=== PATIENT | female | born 1970 | race Caucasian/White ===

== ENCOUNTER 2017-02-26 14:22 | Inpatient (IN) | payer OTHER ==
[~2017-02-26] VITALS: Ht 157.5 cm; Wt 112.9 kg
[~2017-02-26 14:22] MED LIST: AMOXICILLIN500 M2 PO; BENTYL20 MG PO; CLEOCIN HCL300 MG PO; DIFLUCAN150 M1 PO; MEDROL4 M2 PO; PERCOCET 325 MG1 TA2 PO; PERCOCET 5-3251 EACH PO; PERMETHRIN5% TOP; PYRIDIUM100 M1 PO; VALIUM5 M1 PO; ZITHROMAX250 M2 PO; ZOFRAN4 M1 SL
--- NOTE | 2017-02-26 14:28 | NUR ---
PT SEEN BY PCP FOR ABD PAIN ON SUNDAY. PT STATES SHE WAS CALLED TODAY BY DR. ORTIZ AND TOLD TO COME TO ED FOR EVAL OF HER ELEVATED WHITE COUNT. PT CONT. WITH LOWER ABD PAIN AND STATES IT HURST WHEN SHE URINATES. PT STATES SHE IS HAVING TROUBLE MOVING HER BOWELS AND TOOK STOOL SOFTENERS YESTERAY AND MIRALAX THIS AM/.
--- NOTE | 2017-02-26 14:45 | NUR ---
APPRECIATE TRIAGE NOTE. PT AMBULATORY TO ROOM 20. PA CLAIRE TO BEDSIDE FOR EVAL.
--- NOTE | 2017-02-26 14:49 | ED GI/GU/ABDOMINAL COMPLAINT ---
History of Present Illness General Chief Complaint: Abdominal Pain/Flank Pain Stated Complaint: SENT BY DR NORMAN FOR EVAL OF HIGH WHITE COUNT Source: patient Exam Limitations: no limitations Vital Signs & Intake/Output Vital Signs & Intake/Output Vital Signs Date Time Temp Pulse Resp B/P B/P Pulse O2 O2 Flow FiO2 Mean Ox Delivery Rate 02/266 98.0 96 20 112/70 96 Room Air 02/26 2045 97.5 95 18 112/67 97 Room Air Room Air 02/26 1929 97.5 94 20 106/52 96 Room Air 02/26 1430 96.0 108 18 117/84 96 Room Air ED Intake and Output 02/27 0000 02/26 1200 Intake Total 1000 Output Total Balance 1000 Intake, IV 1000 Patient 250 lb Weight Weight Reported by Patient Measurement Method Allergies Coded Allergies: nitrofurantoin (From MACROBID) (HIVES/SOB 02/26/17) aspirin (Intermediate, VOMITING 02/26/17) Reconcile Medications Albuterol Sulfate (Proair Hfa) 90 MCG HFA.AER.AD 2 PUF INH Q4-6 PRN PRN RESPIRATORY (Reported) Calcium Carbonate/Vitamin D3 (Calcium 500 + D Tablet) (Unknown Strength) TABLET (Unknown Dose) PO DAILY SUPPLEMENT (Reported) Ciprofloxacin HCl 500 MG TABLET 1 TAB PO BID ANTIBIOTIC (Reported) Cyanocobalamin (Vitamin B-12) (Nascobal) 500 MCG/SPRAY SPRAY 1 SPRAY DANIELLE QMON SUPPLEMENT (Reported) Duloxetine HCl 30 MG CAPSULE. 3 CAP PO DAILY MENTAL HEALTH (Reported) Multivitamin (Daily Value) 1 EACH TABLET 1 TAB PO DAILY SUPPLEMENT (Reported) Ondansetron HCl 8 MG TABLET 1 TAB PO TID PRN N/V (Reported) Pantoprazole Sodium 40 MG TABLET.DR 1 TAB PO DAILY GI (Reported) Triage Note: PT SEEN BY PCP FOR ABD PAIN ON SUNDAY. PT STATES SHE WAS CALLED TODAY BY DR. ORTIZ AND TOLD TO COME TO ED FOR EVAL OF HER ELEVATED WHITE COUNT. PT CONT. WITH LOWER ABD PAIN AND STATES IT HURST WHEN SHE URINATES. Triage Nurses Notes Reviewed? yes ? N Is pt currently ? No Onset: Abrupt Duration: week(s):, constant Timing: recent history Quality/Severity: moderate, sharpness, severe Radiation: no radiation Activities at Onset: none No Modifying Factors: none HPI: 46-year-old female comes into emergency room for further evaluation of lower abdominal pain. Patient reports that the symptoms began last week. She began to vomit last Sunday and went to see her primary care doctor. She thought that she might of had a urinary tract infection. She saw her doctor who started her on ciprofloxacin and had blood work done. Her doctor called back and said that the urine culture was negative but her inflammatory marker was high concerned about possibly diverticulitis. Previous gastric bypass surgery. Denies any other associated symptoms. (JUDY SWENSON) Past History Travel History Traveled to [place] past 21 day No Medical History Any Pertinent Medical History? 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 No (JUDY SWENSON) Review of Systems Review of Systems Constitutional: Reports: no symptoms. EENTM: Reports: no symptoms. Respiratory: Reports: no symptoms. Cardiovascular: Reports: no symptoms. GI: Reports: see HPI. Genitourinary: Reports: no symptoms. Musculoskeletal: Reports: no symptoms. Skin: Reports: no symptoms. Neurological/Psychological: Reports: no symptoms. Hematologic/Endocrine: Reports: no symptoms. Immunologic/Allergic: Reports: no symptoms. All Other Systems: Reviewed and Negative (JUDY SWENSON) Physical Exam Physical Exam General Appearance: well developed/nourished, no apparent distress, alert Head: atraumatic, normal appearance Eyes: Bilateral: normal appearance. Ears, Nose, Throat, Mouth: hearing grossly normal, moist mucous membrane Neck: normal inspection Respiratory: normal breath sounds, no respiratory distress Cardiovascular: regular rate/rhythm Gastrointestinal: soft, tenderness Back: normal range of motion Extremities: normal range of motion Neurologic/Psych: awake, alert, oriented x 3, normal gait Skin: intact, normal color Core Measures ACS in differential dx? No Severe Sepsis Present: No Septic Shock Present: No (JUDY SWENSON) Progress Differential Diagnosis: appendicitis, biliary colic, bowel obstruction, colon cancer, cholecystitis, diverticulitis, ectopic , gastritis, inflamm bowel dis, kidney stone, ovarian cyst, ovarian torsion, perforated viscous, UTI/ pyelo Plan of Care: Orders Procedure Date/time Status Nothing by Mouth 02/27 B Active CBC WITHOUT DIFFERENTIAL 02/27 06 Active BASIC ELECTROLYTES PLUS BUN&CR 02/27 06 Active Vital Signs 02/26 221 Complete Teach/Educate 02/26 2219 Active Pain Treatment and Response 02/26 2219 Active Nutritional Intake, Monitor 02/26 2219 Active Isolation 02/26 2219 Active Intake & Output 02/26 2219 Complete Patient Care Conference 02/26 2219 Active Activity/Ambulation 02/26 2219 Active Admit to inpatient 02/26 193 Active Patient Data 02/26 1918 Active Vital Signs 02/26 1918 Active Intake & Output 02/26 1918 Active Code Status 02/26 1918 Active Add-on Test (ER Only) 02/26 1753 Active CULTURE,URINE 02/26 1540 Active BLOOD CULTURE 02/26 1448 Active LACTIC ACID 02/26 1448 Complete HUMAN BETA HCG SCREEN 02/26 1448 Complete COMPREHENSIVE METABOLIC PANEL 02/26 1448 Complete CBC WITHOUT DIFFERENTIAL 02/26 1448 Complete URINALYSIS 02/26 1431 Complete Current Medications Sig/Akanksha Start time Last Medication Dose Stop Time Status Admin Duloxetine HCl 90 MG DAILY 02/27 1000 AC (Cymbalta) Nicotine 21 MG DAILY 02/27 1000 AC (Nicoderm) Ampicillin Sodium/ 3,000 MG Q6 02/26 2359 AC 02/26 Sulbactam Sodium 2327 (Unasyn) Sodium Chloride 100 ML (Normal Saline 0.9%) Heparin Sodium 5,000 UNIT Q8 02/26 2200 AC 02/26 (Porcine) 2327 Pantoprazole Sodium 40 MG DAILY 02/26 193 AC 02/26 (Protonix) 2023 Albuterol Sulfate 2 PUF Q4-6 PRN PRN 02/26 1915 AC (Ventolin) Dextrose/Sodium 1,000 ML Q8H 02/26 1915 AC 02/26 Chloride 2024 (D5W-1/2 Normal Saline 1000ML) Doxycycline Hyclate 200 MG ONCE ONE 02/26 1915 CAN (Vibramycin) 02/27 1916 Morphine Sulfate 4 MG Q4P PRN 02/26 1915 AC 02/26 (Morphine) 2334 Ondansetron HCl 4 MG Q6P PRN 02/26 1915 (Zofran) Laboratory Tests 02/26/17 1748: Lactic Acid Cancelled 02/26/17 1545: Anion Gap 11, Estimated GFR > 60, BUN/Creatinine Ratio 15.0, Glucose 92, Lactic Acid 1.4, Calcium 9.1, Total Bilirubin 0.3, AST 21, ALT 26, Alkaline Phosphatase 121, Total Protein 6.6, Albumin 3.7, Globulin 2.9, Albumin/Globulin Ratio 1.3, Total Beta HCG NEGATIVE, CBC w Diff NO MAN DIFF REQ, RBC 3.86 L, MCV 98.1, MCH 31.9 H, RDW 15.6 H, MPV 6.9 L, Gran % 72.9, Lymphocytes % 22.4, Monocytes % 2.5, Eosinophils % 1.1, Basophils % 1.1, Absolute Granulocytes 12.4 H, Absolute Lymphocytes 3.8 H, Absolute Monocytes 0.4, Absolute Eosinophils 0.2, Absolute Basophils 0.2, PUBS MCHC 32.5 L, Urine Color YEL, Urine Clarity CLEAR, Urine pH 6.0, Ur Specific [place] >= 1.030, Urine Protein TRACE H, Urine Ketones NEG, Urine Nitrite NEG, Urine Bilirubin NEG, Urine Urobilinogen 2.0 H, Ur Leukocyte Esterase NEG, Ur Microscopic SEDIMENT EXAMINED, Urine WBC 25-50 H, Ur Epithelial Cells FEW, Urine Bacteria MOD H, Urine Mucus MANY H, Urine Hemoglobin NEG, Urine Glucose NEG Microbiology 02/26 1553 BLOOD: Blood Culture - RECD 02/26 1545 BLOOD: Blood Culture - RECD 02/26 1540 URINE ROUT: Urine Culture - RECD Diagnostic Imaging: Viewed by Me: CT Scan. Discussed w/RAD: CT Scan. Radiology Impression: SERVICE DATE: 02/26/17 EXAM TYPE: CAT - CT ABD & PELVIS W ORAL & IV CO EXAMINATION: CT ABDOMEN AND PELVIS WITH CONTRAST CLINICAL INFORMATION: Left lower quadrant pain, gastric bypass 2010. COMPARISON: 2014 TECHNIQUE: Multidetector volumetric imaging was performed of the abdomen and pelvis before and after the IV administration of 95 mL of Optiray 320 intravenous contrast. Sagittal and coronal reformatted images were obtained on the technologist's workstation. DLP: 1489 mGy-cm FINDINGS: LUNG BASES: Clear, there is an old healed posterior 8th rib fracture partially visualized. LIVER AND SPLEEN: Unremarkable. PANCREAS GALLBLADDER AND BILIARY TREE: Unremarkable. KIDNEYS, URETERS, AND ADRENALS: Unremarkable. URINARY BLADDER: Partially distended and unremarkable. GI TRACT: There are postsurgical changes consistent with a Sharon-en-Y gastric bypass procedure without evidence of an associated complication. PERITONEAL CAVITY: There is intraperitoneal free fluid with nonspecific mesenteric soft tissue stranding in the pelvis with the largest fluid collection in the right lower quadrant/pelvis just posterior to what appears to represent a normal-appearing appendix. Small bowel loops are nondilated. There is mild circumferential mural thickening questioned, however this is thought to represent underdistention although an evolving colitis is not entirely excluded. RETROPERITONEUM: There are a few scattered retroperitoneal lymph nodes measuring under 1 cm. PELVIC ORGANS: An intrauterine device appears in satisfactory position. There are small probable cysts in the bilateral adnexa measuring under 2 cm maximal dimension. OSSEOUS STRUCTURES: No aggressive osseous lesions. There are degenerative changes which are mild. ANTERIOR ABDOMINAL WALL AND SOFT TISSUES: There is a small anterior abdominal wall hernia containing only mesenteric fat just to the left of midline superior to the umbilicus by approximately 5 cm. IMPRESSION: 1. Post gastric bypass changes appear largely unchanged without evidence of complication. 2. There is intraperitoneal free fluid in the pelvis and right paracolic gutter with associated soft tissue stranding suggesting inflammation indeterminate in etiology. 3. Questionable mild mural thickening with surrounding inflammatory changes involving the sigmoid colon versus underdistention. Question primary versus secondarily involved bowel loop. 3. Small anterior abdominal wall hernia contains only mesenteric fat. DICTATED BY: TARAN ROMAN MD DATE/TIME DICTATED:02/26/171707 LEARNING TECHNOLOGIST:PATRICK Initial ED EKG: none (JUDY SWENSON) Departure Departure Disposition: STILL A PATIENT Condition: Stable Clinical Impression Primary Impression: Abdominal pain Secondary Impressions: Free fluid in pelvis, Leukocytosis Referrals: ESTER DODGE,GOMEZ Milton (PCP/Family) Departure Forms: Customer Survey General Discharge Information Admission Note Spoke With: JHONY DODGE,QUEENIE N. Documentation of Exam: Documentation of any treatments & extenuating circumstances including Concerns Regarding Discharge (functional status, medication knowledge or non-compliance, living conditions, etc.) that warrant an admission rather than observation: Patient will require IV fluids. IV antibiotics. Surgery consultation. Repeat imaging. Repeat labs. Patient has free fluid in the pelvis with inflammation with unknown etiology at this time. She was evaluated by the general surgeon who feels that she needs admission to the hospital for further care. NPO. (CLAIRE NASCIMENTO,JUDY) PA/SALES REPRESENTATIVE FACILITY SERVICES Co-Sign Statement Statement: ED Attending supervision documentation- [] I saw and evaluated the patient. I have also reviewed all the pertinent lab results and diagnostic results. I agree with the findings and the plan of care as documented in the PA's/SALES REPRESENTATIVE FACILITY SERVICES's documentation. [X] I have reviewed the ED Record and agree with the PA's/SALES REPRESENTATIVE FACILITY SERVICES's documentation. [] Additions or exceptions (if any) to the PAs/SALES REPRESENTATIVE FACILITY SERVICES's note and plan are summarized below: [] (NATHALIE DODGE,WENDI)
--- NOTE | 2017-02-26 15:52 | NUR ---
PT MEDICATED WITH MORPHINE 4MG PER EMAR.
--- NOTE | 2017-02-26 15:54 | NUR ---
LABS DRAWN AND SENT BY THIS RN (BLUE, SST X2, LAV, LAKE, CULTURES X1 SET). IV EST #20 AND NS IVF BOLUS RUNNING. MEDICATED WITH MORPHINE PER eMAR BY SOHAM WALLIS
[2017-02-26 16:01] LABS: ABSOLUTE BASOPHIL COUNT 0.2 /CUMM (0.0-0.2); ABSOLUTE EOSINOPHIL COUNT 0.2 /CUMM (0.0-0.7); ABSOLUTE GRANULOCYTE CT 12.4 /CUMM (1.4-6.5); ABSOLUTE LYMPH COUNT 3.8 /CUMM (1.2-3.4); ABSOLUTE MONOCYTE COUNT 0.4 /CUMM (0.10-0.60); BASOPHIL % 1.1 % (0.0-2.0); EOSINOPHIL % 1.1 % (0-5); HEMATOCRIT 37.8 % (37-47); MEAN CORPUSCULAR HGB 31.9 PG (27.0-31.0); MEAN CORPUSCULAR HGB CONC 32.5 G/DL (33.0-37.0); MEAN CORPUSCULAR VOLUME 98.1 FL (81.0-99.0); MEAN PLATELET VOLUME 6.9 FL (7.4-10.4); PLATELET COUNT 540 /CUMM (130-400); RBC DISTRIBUTION WIDTH 15.6 % (11.5-14.5); RED BLOOD CELL CT 3.86 /CUMM (4.20-5.40)
[2017-02-26 16:23] LABS: GRANULOCYTE % 72.9 % (42.2-75.2)
[2017-02-26] MEDS ORDERED: NASCOBAL1 EACH NAS (16:34)
[2017-02-26] MEDS ORDERED: PANTOPRAZOLE SO40 M1 PO (16:34)
[2017-02-26] MEDS ORDERED: DULOXETINE HCL30 MG PO (16:34)
[2017-02-26] MEDS ORDERED: CIPROFLOXACIN500 M2 PO (16:34)
[2017-02-26] MEDS ORDERED: ONDANSETRON HCL8 MG PO (16:35)
[2017-02-26] MEDS ORDERED: PROAIR HFA8.5 GM INH (16:35)
[2017-02-26] MEDS ORDERED: CALCIUM 500 +1 EAC5 PO (16:36)
[2017-02-26] MEDS ORDERED: DAILY VALUE1 EACH PO (16:37)
--- NOTE | 2017-02-26 17:03 | NUR ---
PT RETURNED FROM CAT SCAN VIA STRETCHER AT THIS TIME.
--- NOTE | 2017-02-26 17:48 | CT SCAN REPORT ---
EXAMINATION: CT ABDOMEN AND PELVIS WITH CONTRAST CLINICAL INFORMATION: Left lower quadrant pain, gastric bypass 2010. COMPARISON: 01/23/2015 TECHNIQUE: Multidetector volumetric imaging was performed of the abdomen and pelvis before and after the IV administration of 95 mL of Optiray 320 intravenous contrast. Sagittal and coronal reformatted images were obtained on the technologist's workstation. DLP: 1489 mGy-cm FINDINGS: LUNG BASES: Clear, there is an old healed posterior 8th rib fracture partially visualized. LIVER AND SPLEEN: Unremarkable. PANCREAS GALLBLADDER AND BILIARY TREE: Unremarkable. KIDNEYS, URETERS, AND ADRENALS: Unremarkable. URINARY BLADDER: Partially distended and unremarkable. GI TRACT: There are postsurgical changes consistent with a Sharon-en-Y gastric bypass procedure without evidence of an associated complication. PERITONEAL CAVITY: There is intraperitoneal free fluid with nonspecific mesenteric soft tissue stranding in the pelvis with the largest fluid collection in the right lower quadrant/pelvis just posterior to what appears to represent a normal-appearing appendix. Small bowel loops are nondilated. There is mild circumferential mural thickening questioned, however this is thought to represent underdistention although an evolving colitis is not entirely excluded. RETROPERITONEUM: There are a few scattered retroperitoneal lymph nodes measuring under 1 cm. PELVIC ORGANS: An intrauterine device appears in satisfactory position. There are small probable cysts in the bilateral adnexa measuring under 2 cm maximal dimension. OSSEOUS STRUCTURES: No aggressive osseous lesions. There are degenerative changes which are mild. ANTERIOR ABDOMINAL WALL AND SOFT TISSUES: There is a small anterior abdominal wall hernia containing only mesenteric fat just to the left of midline superior to the umbilicus by approximately 5 cm. IMPRESSION: 1. Post gastric bypass changes appear largely unchanged without evidence of complication. 2. There is intraperitoneal free fluid in the pelvis and right paracolic gutter with associated soft tissue stranding suggesting inflammation indeterminate in etiology. 3. Questionable mild mural thickening with surrounding inflammatory changes involving the sigmoid colon versus underdistention. Question primary versus secondarily involved bowel loop. 3. Small anterior abdominal wall hernia contains only mesenteric fat.
--- NOTE | 2017-02-26 18:40 | NUR ---
UNASYN GTT ADMINISTERED PER eMAR
--- NOTE | 2017-02-26 19:20 | Admission Core Measures ---
Admission Lab Results I reviewed the following labs: Laboratory Tests 02/26 02/26 1748 1545 Chemistry Sodium (137 - 145 mmol/L) 139 Potassium (3.5 - 5.1 mmol/L) 4.6 Chloride (98 - 107 mmol/L) 100 Carbon Dioxide (22 - 30 mmol/L) 28 Anion Gap (5 - 16) 11 BUN (7 - 17 mg/dL) 9 Creatinine (0.5 - 1.0 mg/dL) 0.6 Estimated GFR (>60 ml/min) > 60 BUN/Creatinine Ratio (7 - 25 %) 15.0 Glucose (65 - 99 mg/dL) 92 Lactic Acid (0.7 - 2.1 mmol/L) Cancelled 1.4 Calcium (8.4 - 10.2 mg/dL) 9.1 Total Bilirubin (0.2 - 1.3 mg/dL) 0.3 AST (14 - 36 U/L) 21 ALT (9 - 52 U/L) 26 Alkaline Phosphatase (<127 U/L) 121 Total Protein (6.3 - 8.2 g/dL) 6.6 Albumin (3.5 - 5.0 g/dL) 3.7 Globulin (1.9 - 4.2 gm/dL) 2.9 Albumin/Globulin Ratio (1.1 - 2.2 %) 1.3 Total Beta HCG (NEGATIVE) NEGATIVE Hematology CBC w Diff NO MAN DIFF REQ WBC (4.8 - 10.8 /CUMM) 17.0 H RBC (4.20 - 5.40 /CUMM) 3.86 L Hgb (12.0 - 16.0 G/DL) 12.3 Hct (37 - 47 %) 37.8 MCV (81.0 - 99.0 FL) 98.1 MCH (27.0 - 31.0 PG) 31.9 H RDW (11.5 - 14.5 %) 15.6 H Plt Count (130 - 400 /CUMM) 540 H MPV (7.4 - 10.4 FL) 6.9 L Gran % (42.2 - 75.2 %) 72.9 Lymphocytes % (20.5 - 51.1 %) 22.4 Monocytes % (1.7 - 9.3 %) 2.5 Eosinophils % (0 - 5 %) 1.1 Basophils % (0.0 - 2.0 %) 1.1 Absolute Granulocytes (1.4 - 6.5 /CUMM) 12.4 H Absolute Lymphocytes (1.2 - 3.4 /CUMM) 3.8 H Absolute Monocytes (0.10 - 0.60 /CUMM) 0.4 Absolute Eosinophils (0.0 - 0.7 /CUMM) 0.2 Absolute Basophils (0.0 - 0.2 /CUMM) 0.2 PUBS MCHC (33.0 - 37.0 G/DL) 32.5 L Urines Urine Color (YEL,AMB,STR) YEL Urine Clarity (CLEAR) CLEAR Urine pH (5.0 - 8.0) 6.0 Ur Specific [place] (1.001 - 1.035) >= 1.030 Urine Protein (NEG,<30 MG/DL) TRACE H Urine Ketones (NEG) NEG Urine Nitrite (NEG) NEG Urine Bilirubin (NEG) NEG Urine Urobilinogen (0.1 - 1.0 EU/dl) 2.0 H Ur Leukocyte Esterase (NEG) NEG Ur Microscopic SEDIMENT EXAMINED Urine WBC (0 - 2 /HPF) 25-50 H Ur Epithelial Cells (NONE,FEW) FEW Urine Bacteria (NEG/NONE) MOD H Urine Mucus (FEW,NONE) MANY H Urine Hemoglobin (NEG) NEG Urine Glucose (N MG/DL) NEG Admission Meds I reviewed the following Meds: Current Medications Sig/Akanksha Start time Last Medication Dose Stop Time Status Admin Albuterol Sulfate 2 PUF Q4-6 PRN PRN 02/26 1915 UNVr (Ventolin) Ampicillin Sodium/ 3,000 MG Q6 02/26 2359 UNVr Sulbactam Sodium (Unasyn) Sodium Chloride 100 ML (Normal Saline 0.9%) Dextrose/Sodium 1,000 ML Q8H 02/26 1915 UNVr Chloride (D5W-1/2 Normal Saline 1000ML) Doxycycline Hyclate 200 MG ONCE ONE 02/26 1915 CAN (Vibramycin) 02/27 1916 Duloxetine HCl 90 MG DAILY 02/27 1000 UNVr (Cymbalta) Heparin Sodium 5,000 UNIT Q8 02/26 2200 UNVr (Porcine) Morphine Sulfate 4 MG Q4P PRN 02/26 1915 UNVr (Morphine) Ondansetron HCl 4 MG Q6P PRN 02/26 1915 UNVr (Zofran) Pantoprazole Sodium 40 MG DAILY 02/26 1930 UNVr (Protonix) Acute Coronary Syndrome Inclusion Criteria ACS Diagnosis No Inpatient Core Measures LDL Reminder: If No, please order W/I first 24hr of stay Congestive Heart Failure Inclusion Criteria CHF Diagnosis No Cerebrovascular accident Inclusion Criteria CVA/TIA Diagnosis No Inpatient Core Measures Bedside Swallow Eval Reminder: If BSE failed, place ST order Antithrombotic Reminder: Order Antithrombotic Medication by end of day 2 Antithrombotic Reminder: Document Reason Antithrombotic Not ordered by end of day 2 AFIB/Flutter Reminder: If Present, add to problem list AFIB/Flutter Reminder: Order Anticoag Medication for pts with AFIB/Flutter Atherosclerosis Reminder: If Present, add to problem list LDL Reminder: If No, please order W/I first 24hr of stay PT Order Reminder: If No, please order Venous thromboembolism Inpatient Core Measures VTE Risk Factors: Acute medical illness, Age > 40, Smoking No [facility] VTE prophylaxis d/t No contraindications No VTE Pharm Prophylaxis d/t No contraindications Inclusion Criteria - Per Current guidelines, there needs to be overlap - treatment for the first 5 days of Warfarin therapy. - Parenteral Anticoagulation (IV or SC) needs to be - given along with Warfarin therapy. VTE Diagnosis No VTE Type NONE VTE Confirmed by (Test) NONE Problem List As ranked by this Provider includes Assessment & Plan 1. Leukocytosis 2. Abdominal pain 3. Free fluid in pelvis HOME MEDS Home Med List Albuterol Sulfate (Proair Hfa) 90 MCG HFA.AER.AD 2 PUF INH Q4-6 PRN PRN RESPIRATORY (Reported) Calcium Carbonate/Vitamin D3 (Calcium 500 + D Tablet) (Unknown Strength) TABLET (Unknown Dose) PO DAILY SUPPLEMENT (Reported) Ciprofloxacin HCl 500 MG TABLET 1 TAB PO BID ANTIBIOTIC (Reported) Cyanocobalamin (Vitamin B-12) (Nascobal) 500 MCG/SPRAY SPRAY 1 SPRAY DANIELLE QMON SUPPLEMENT (Reported) Duloxetine HCl 30 MG CAPSULE.DR 3 CAP PO DAILY MENTAL HEALTH (Reported) Multivitamin (Daily Value) 1 EACH TABLET 1 TAB PO DAILY SUPPLEMENT (Reported) Ondansetron HCl 8 MG TABLET 1 TAB PO TID PRN N/V (Reported) Pantoprazole Sodium 40 MG TABLET.DR 1 TAB PO DAILY GI (Reported)
--- NOTE | 2017-02-26 20:19 | NUR ---
PT BED ASSIGNMENT 222-1
--- NOTE | 2017-02-26 20:45 | NUR ---
REPORT GIVEN TO SOHAM CHOWDHURY. TRANSPORT BOOKED.
[2017-02-26 22:26] VITALS: BP 112/70
--- NOTE | 2017-02-26 23:28 | History & Physical Pre-Op ---
General Information and HPI Exam Limitations: no limitations History of Present Illness: CC: abdominal pain HPI: 46-year-old smoker nondiabetic with a personal and family history of polyps normally no issues with her bowel movements but became constipated about 4 days ago has been passing gas but hasn't had a bowel movement since she took some laxatives including MiraLAX she went to her primary who started on antibiotics and got blood work and then told her to come to the ER with a blood work came back with high white blood cell count. Her pain is constant its mild-to- moderate it's mostly in the left lower quadrant she denies a history of diverticulitis she thought it was a urinary infection which she's had before she 's had some associated dysuria no recent flulike symptoms no recent upper respiratory tract infections, no fevers sweats nausea or vomiting, no particular right lower quadrant pain no gynecologic disease history, she has an IUD. Her daughter is with her in the ER in retrospect she hasn't felt well for about 2 weeks mild abdominal discomfort poor appetite and fatigue. I've reviewed the [facility]. No history of GERD, PUD, bleeding problems, heart disease or issues with anesthesia. Family history negative for diabetes or cancer, just polyps, past surgical history-gastric bypass. Allergies/Medications Allergies: Coded Allergies: nitrofurantoin (From MACROBID) (HIVES/SOB 02/26/17) aspirin (Intermediate, VOMITING 02/26/17) Home Med list Albuterol Sulfate (Proair Hfa) 90 MCG HFA.AER.AD 2 PUF INH Q4-6 PRN PRN RESPIRATORY (Reported) Calcium Carbonate/Vitamin D3 (Calcium 500 + D Tablet) (Unknown Strength) TABLET (Unknown Dose) PO DAILY SUPPLEMENT (Reported) Ciprofloxacin HCl 500 MG TABLET 1 TAB PO BID ANTIBIOTIC (Reported) Cyanocobalamin (Vitamin B-12) (Nascobal) 500 MCG/SPRAY SPRAY 1 SPRAY DANIELLE QMON SUPPLEMENT (Reported) Duloxetine HCl 30 MG CAPSULE. 3 CAP PO DAILY MENTAL HEALTH (Reported) Multivitamin (Daily Value) 1 EACH TABLET 1 TAB PO DAILY SUPPLEMENT (Reported) Ondansetron HCl 8 MG TABLET 1 TAB PO TID PRN N/V (Reported) Pantoprazole Sodium 40 MG TABLET.DR 1 TAB PO DAILY GI (Reported) Past History Medical History Neurological: migraine EENT: NONE Cardiovascular: NONE Respiratory: COPD Gastrointestinal: hiatal hernia, GASTRIC BYPASS Hepatic: NONE Renal: NONE Musculoskeletal: chronic back pain Psychiatric: anxiety, depression Endocrine: NONE Blood Disorders: NONE Cancer(s): NONE DIRECTOR OF ONLINE EDUCATION/Reproductive: NONE Surgical History Pertinent Surgical History: non-contributory Past Family/Social History Psychosocial History ETOH Use: occasional use Illicit Drug Use: denies illicit drug use Review of Systems Review of Systems: Constitutional: No fever, sweats or weight loss ENMT: No sore throat Cardiovascular: No chest pain, palpitations or leg swelling Respiratory: No shortness of breath, cough, or sputum or dyspnea on exertion GI: No GERD or bleeding per rectum : No dysuria or hematuria Musculoskeletal: No new muscle weakness, bone or joint pain Skin / Breast: No jaundice, rashes or itching Psychiatric: No history of drug or alcohol abuse no depression or anxiety Hematologic / lymphatic system: No problems with excessive bleeding, bruising, or blood clots Exam & Diagnostic Data Last 24 Hrs of Vital Signs/I&O I reviewed Vital Signs Date Time Temp Pulse Resp B/P B/P Pulse O2 O2 Flow FiO2 Mean Ox Delivery Rate 02/26 2226 98.0 96 20 112/70 96 Room Air 02/26 2045 97.5 95 18 112/67 97 Room Air Room Air 02/26 1929 97.5 94 20 106/52 96 Room Air 02/26 1430 96.0 108 18 117/84 96 Room Air I reviewed Intake & Output 02/26 1600 02/26 0800 02/26 0000 Intake Total 1000 Output Total Balance 1000 Intake, IV 1000 Patient 250 lb Weight Weight Reported by Patient Measurement Method Physical Exam: Constitutional: pleasant, no acute distress, conversant Eyes: sclera anicteric ENMT: ears and nose atraumatic, moist mucous membranes, good dentition, no lip lesions Neck: Supple, trachea is midline, no cervical or supraclavicular adenopathy and no palpable thyromegaly Cardiovascular: S1, S2, no murmurs, no peripheral edema Respiratory: clear to auscultation with normal respiratory effort and no intercostal retractions GI: abdomen soft, mild left lower quadrant tenderness not particularly on the right, nondistended, no palpable hepatosplenomegaly Extremities / lymphatics: symmetrically warm, free range of motion no peripheral edema, no cervical, supraclavicular, axillary, or inguinal adenopathy Musculoskeletal: Normal gait and station, no digital cyanosis, good muscle strength and tone no atrophy, motor grossly 5 out of 5 throughout Skin: no jaundice, no rashes warm, nondiaphoretic, no areas of erythema or induration Psychiatric: mood and affect are appropriate and alert and oriented to person place and time Last 24 Hrs of Labs/Chaim: I reviewed Laboratory Tests 02/26/17 1748: Lactic Acid Cancelled 02/26/17 1545: Anion Gap 11, Estimated GFR > 60, BUN/Creatinine Ratio 15.0, Glucose 92, Lactic Acid 1.4, Calcium 9.1, Total Bilirubin 0.3, AST 21, ALT 26, Alkaline Phosphatase 121, Total Protein 6.6, Albumin 3.7, Globulin 2.9, Albumin/Globulin Ratio 1.3, Total Beta HCG NEGATIVE, CBC w Diff NO MAN DIFF REQ, RBC 3.86 L, MCV 98.1, MCH 31.9 H, RDW 15.6 H, MPV 6.9 L, Gran % 72.9, Lymphocytes % 22.4, Monocytes % 2.5, Eosinophils % 1.1, Basophils % 1.1, Absolute Granulocytes 12.4 H, Absolute Lymphocytes 3.8 H, Absolute Monocytes 0.4, Absolute Eosinophils 0.2, Absolute Basophils 0.2, PUBS MCHC 32.5 L, Urine Color YEL, Urine Clarity CLEAR, Urine pH 6.0, Ur Specific [place] >= 1.030, Urine Protein TRACE H, Urine Ketones NEG, Urine Nitrite NEG, Urine Bilirubin NEG, Urine Urobilinogen 2.0 H, Ur Leukocyte Esterase NEG, Ur Microscopic SEDIMENT EXAMINED, Urine WBC 25-50 H, Ur Epithelial Cells FEW, Urine Bacteria MOD H, Urine Mucus MANY H, Urine Hemoglobin NEG, Urine Glucose NEG Microbiology 02/26 1553 BLOOD: Blood Culture - RECD 02/26 1545 BLOOD: Blood Culture - RECD 02/26 1540 URINE ROUT: Urine Culture - RECD Assessment/Plan Assessment/Plan: I reviewed the CT scan on PACS myself done in the ER it shows some vague diffuse inflammatory changes in the pelvis more central and a pocket of free fluid in the right lower quadrant below and otherwise appearing air-filled thin appendix no obvious diverticulitis but the sigmoid colon is redundant and doesn't loop near this fluid collection on the right now obvious bowel obstruction, there is no free air or air-fluid level in this fluid collection. On review she had a CT scan 2 years ago also for abdominal pain and there were some inflammatory changes but they were higher up probably related to her gastric bypass. Impression is some type of pelvic infection developing gradually for up to 2 weeks which has worsened with increased pain but otherwise no obvious signs of sepsis but the CT is suspicious for pus whether it be from the appendix gynecologic or the colon it's not clear it may be improving gradually by itself but I recommend admitting her starting her on IV antibiotics and seeing how she progresses she may need a percutaneous drain or even a laparotomy but not yet, it doesn't appear as a definite abscess. As Ranked By This Provider Problem List: 1. Free fluid in pelvis 2. Abdominal pain 3. Leukocytosis 4. Dysuria
--- NOTE | 2017-02-26 23:46 | NUR ---
A&Ox3, VSS, 510 LLQ ABD PAIN, STEADY GAIT, DENIES Hx FALLS. SON AT THE BEDSIDE. ORIENTED TO FLOOR. CALL FORD IN REACH. WILL CONTINUE TO MONITOR THIS SHIFT.
[2017-02-27 06:40] VITALS: BP 112/60
[2017-02-27 08:13] LABS: ABSOLUTE BASOPHIL COUNT 0.1 /CUMM (0.0-0.2); ABSOLUTE EOSINOPHIL COUNT 0.2 /CUMM (0.0-0.7); ABSOLUTE GRANULOCYTE CT 9.8 /CUMM (1.4-6.5); ABSOLUTE LYMPH COUNT 2.8 /CUMM (1.2-3.4); ABSOLUTE MONOCYTE COUNT 0.5 /CUMM (0.10-0.60); BASOPHIL % 0.4 % (0.0-2.0); EOSINOPHIL % 1.3 % (0-5); GRANULOCYTE % 73.6 % (42.2-75.2); HEMATOCRIT 35.5 % (37-47); MEAN CORPUSCULAR HGB 31.9 PG (27.0-31.0); MEAN CORPUSCULAR HGB CONC 32.8 G/DL (33.0-37.0); MEAN CORPUSCULAR VOLUME 97.3 FL (81.0-99.0); MEAN PLATELET VOLUME 6.9 FL (7.4-10.4); PLATELET COUNT 462 /CUMM (130-400); RBC DISTRIBUTION WIDTH 15.4 % (11.5-14.5); RED BLOOD CELL CT 3.65 /CUMM (4.20-5.40); WHITE BLOOD CELL COUNT 13.3 /CUMM (4.8-10.8)
--- NOTE | 2017-02-27 08:45 | PN- General Surgery ---
See Addendum Subjective Subjective: Pt complaining of headache - likely caffeine withdrawal as she drinks coffee all day per her report Otherwise feels ok Mild abdominal pain, no nausea, + flatus, no bm Has been voiding in the toilet - not collected Objective Vital Signs and I&Os Vital Signs Date Time Temp Pulse Resp B/P B/P Pulse O2 O2 Flow FiO2 Mean Ox Delivery Rate 02/27 0640 98.8 85 20 112/60 91 Room Air 02/26 2226 98.0 96 20 112/70 96 Room Air 02/26 2045 97.5 95 18 112/67 97 Room Air Room Air 02/26 1929 97.5 94 20 106/52 96 Room Air 02/26 1430 96.0 108 18 117/84 96 Room Air Intake & Output 02/27 1600 02/27 0800 02/27 0000 02/26 1600 02/26 0800 02/26 0000 Intake Total 1000 1000 Output Total Balance 1000 1000 Intake, IV 1000 1000 Patient 250 lb 250 lb Weight Weight Reported by Patient Measurement Method Physical Exam: vss, afebrile General: alert and oriented times three chest: clear anteriorly bilaterally, RRR Abd: soft, nondistended, tender to moderate palpation at LLQ, mildly tender at RLQ, nontender at both upper quadrants even to deep palpation Ext: warm, no edema Assessment/Plan Assessment/Plan 46 yo female admitted with LLQ abdominal pain, wbc 17, with a CT revealing: -There is intraperitoneal free fluid in the pelvis and right paracolic gutter with associated soft tissue stranding suggesting inflammation indeterminate in etiology. -Questionable mild mural thickening with surrounding inflammatory changes involving the sigmoid colon versus underdistention. Question primary versus secondarily involved bowel loop. -Small anterior abdominal wall hernia contains only mesenteric fat Pt has no know history of diverticulitis although this likely represents a microperf. WBC is improving Continue npo/ivf Continue Unasyn Dr Dial discussing with IR - ?drain strict I/O for NPO patient hep sc for dvt ppx protonix IV Core Measures/Miscellaneous Venous Thromboembolism VTE Risk Factors: Age > 40, Inflammatory bowel Dx VTE Contraindications: No Contraindications VTE Diagnosis: No VTE Type: NONE VTE Confirmed by (Test): NONE Beta Vy Is Beta Vy a Home Med? No Antibiotics Is Patient on Antibiotics? Yes If Yes: infection
[2017-02-27 14:12] VITALS: BP 112/80
[2017-02-27 22:19] VITALS: BP 100/80
[2017-02-28 06:11] VITALS: BP 112/64
--- NOTE | 2017-02-28 07:11 | PN- Student ---
PASTORA ALVARADO 02/28/17 0658: Subjective Subjective: Patient seen this am, has not had a bowel movement but reports a strong urge to go. She states that she "feels like she is sitting on a ball of stool." Is passing flatus frequently since yesterday. Reports crampy lower abdominal pain but doesn't know if it's related to possible constipation or abdominal infection. Still reporting headache that is being controlled by tylenol. Is OOB and ambulating floors multiple times a day. Denies current SOB/chest pain, nausea/vomiting, dizziness. Objective Objective: Vital Signs Result Date Time Pulse Ox 93 02/28 611 B/P 112/64 02/28 06 O2 Delivery Room Air 02/28 611 Temp 98.2 02/28 611 Pulse 92 02/28 611 Resp 18 02/28 06 O2 Flow Rate Room Air 02/26 2045 Intake & Output 02/28 0000 / 1600 / 0800 Intake Total 504 795 1239 Output Total 350 700 Balance 900 807 0719 Intake, IV 312 977 6542 Intake, Oral 0 15 Output, Urine 350 700 General: awake, alert, oriented, NAD Lungs: CTAB, air movement bilaterally, no wheeze/rales/rhonchi Heart: S1 S2, RRR, no M, R, G Abdomen: soft, non-distended, normoactive bowel sounds, tympanic, ttp RLQ and LLQ Extremities: warm, soft, no peripheral edema, no calf tenderness bilaterally, gross motor/sensory function in tact Assessment/Plan Assessment: This is a 46 y/o woman s/p admission day 2 for intra-abdominal infection and fluid collection possibly due to microperforation but no hx of diverticulitis. White count trending down, pending labs this am. Abdominal pain improving but still has not had bowel movement. Plan: Diet: npo until bm - then advance to clears as tolerated Pain: continue current pain regimen DVT ppx: subq heparin and OOB ambulating GI ppx Consider bowel regimen for constipation Trend WBC count with am labs Continue abx for intra-abdominal infection Strict I's and O's Continue IV fluids ?IR drain if abscess forms Will discuss with attending DELMAR CASTRO 02/28/17 0724: Assessment/Plan Plan: agree with above PA-S note awaiting BM to try clears f/u labs will d/w
[2017-02-28 09:06] LABS: ABSOLUTE BASOPHIL COUNT 0 /CUMM (0.0-0.2); ABSOLUTE EOSINOPHIL COUNT 0.2 /CUMM (0.0-0.7); ABSOLUTE GRANULOCYTE CT 7.9 /CUMM (1.4-6.5); ABSOLUTE LYMPH COUNT 2.3 /CUMM (1.2-3.4); ABSOLUTE MONOCYTE COUNT 0.4 /CUMM (0.10-0.60); BASOPHIL % 0.3 % (0.0-2.0); EOSINOPHIL % 1.4 % (0-5); GRANULOCYTE % 72.6 % (42.2-75.2); HEMATOCRIT 34.7 % (37-47); MEAN CORPUSCULAR HGB 31.8 PG (27.0-31.0); MEAN CORPUSCULAR HGB CONC 32.7 G/DL (33.0-37.0); MEAN CORPUSCULAR VOLUME 97.2 FL (81.0-99.0); MEAN PLATELET VOLUME 6.9 FL (7.4-10.4); PLATELET COUNT 526 /CUMM (130-400); RBC DISTRIBUTION WIDTH 15.6 % (11.5-14.5); RED BLOOD CELL CT 3.58 /CUMM (4.20-5.40); WHITE BLOOD CELL COUNT 10.9 /CUMM (4.8-10.8)
[2017-02-28 12:19] VITALS: BP 110/70
--- NOTE | 2017-02-28 12:20 | NUR ---
PT C/O OF DIZZINESS ON AMBULATION, INSTRUCTED PT TO SIT DOWN, PROVIDED A SIP OF WATER, BP STABLE @ 110/70, WILL CONTINUE TO MONITOR.
--- NOTE | 2017-02-28 12:55 | PN- General Surgery ---
Subjective Subjective: Follow-up of pelvic pain and inflammation and fluid collection This morning she feels like she is about to have a bowel movement feels a little pressure there but her pain overall is better no nausea no vomiting no sweats she is hungry. Objective Vital Signs and I&Os I reviewed Vital Signs Date Time Temp Pulse Resp B/P B/P Pulse O2 O2 Flow FiO2 Mean Ox Delivery Rate 02/28 1219 110/70 02/28 0611 98.2 92 18 112/64 93 Room Air 02/27 2219 98.1 82 20 100/80 94 / 1412 97.9 86 20 112/80 90 Room Air I reviewed Intake & Output 02/28 1600 02/28 0800 02/28 0000 02/27 1600 02/27 0800 02/27 0000 Intake Total 1000 025 270 6847 Output Total 400 350 700 Balance 600 764 472 7529 Intake, IV 1000 322 268 0667 Intake, Oral 0 15 Output, Urine 400 350 700 Patient 249 lb 250 lb Weight Physical Exam: Constitutional: no acute distress no pain Eyes: sclera anicteric ENMT: moist mucous membranes Cardiovascular: S1-S2 no murmurs no peripheral edema Respiratory: clear to auscultation with normal respiratory effort and no intercostal retractions GI: abdomen soft nontender nondistended Extremities / lymphatics: free range of motion no peripheral edema Skin: no jaundice no rashes warm, nondiaphoretic Psychiatric: mood and affect are appropriate and alert and oriented to person place and time Current Medications: I reviewed Current Medications Sig/Akanksha Start time Last Medication Dose Route Stop Time Status Admin Acetaminophen 1,000 MG Q6P PRN 02/27 0845 AC 02/28 N/A 1 UNIT IV 0652 Albuterol Sulfate 2 PUF Q4-6 PRN PRN 02/26 1915 AC INH Ampicillin Sodium/ 3,000 MG Q6 02/26 2359 AC 02/28 Sulbactam Sodium IV 1153 Sodium Chloride 100 ML Dextrose/Sodium 1,000 ML Q8H 02/26 1915 AC 02/28 Chloride IV 0319 Duloxetine HCl 90 MG DAILY 02/27 1000 AC 02/28 PO 0957 Heparin Sodium 5,000 UNIT Q8 02/26 2200 AC 02/28 (Porcine) SC 0515 Morphine Sulfate 4 MG Q4P PRN 02/26 1915 AC 02/28 IV 0018 Nicotine 21 MG DAILY 02/27 1000 AC 02/28 TOP 0957 Ondansetron HCl 4 MG Q6P PRN 02/26 1915 AC IV Pantoprazole Sodium 40 MG DAILY 02/26 193 AC 02/28 IV 0957 Results Last 48 Hours of Labs: I reviewed Laboratory Tests 02/28 02/27 0710 0715 Chemistry Sodium (137 - 145 mmol/L) 140 139 Potassium (3.5 - 5.1 mmol/L) 4.1 3.9 Chloride (98 - 107 mmol/L) 106 105 Carbon Dioxide (22 - 30 mmol/L) 25 26 Anion Gap (5 - 16) 9 7 BUN (7 - 17 mg/dL) 4 L 5 L Creatinine (0.5 - 1.0 mg/dL) 0.5 0.5 Estimated GFR (>60 ml/min) > 60 > 60 BUN/Creatinine Ratio (7 - 25 %) 8.0 10.0 Hematology CBC w Diff NO MAN DIFF REQ NO MAN DIFF REQ WBC (4.8 - 10.8 /CUMM) 10.9 H 13.3 H RBC (4.20 - 5.40 /CUMM) 3.58 L 3.65 L Hgb (12.0 - 16.0 G/DL) 11.4 L 11.6 L Hct (37 - 47 %) 34.7 L 35.5 L MCV (81.0 - 99.0 FL) 97.2 97.3 MCH (27.0 - 31.0 PG) 31.8 H 31.9 H RDW (11.5 - 14.5 %) 15.6 H 15.4 H Plt Count (130 - 400 /CUMM) 526 H 462 H MPV (7.4 - 10.4 FL) 6.9 L 6.9 L Gran % (42.2 - 75.2 %) 72.6 73.6 Lymphocytes % (20.5 - 51.1 %) 21.6 21.0 Monocytes % (1.7 - 9.3 %) 4.1 3.7 Eosinophils % (0 - 5 %) 1.4 1.3 Basophils % (0.0 - 2.0 %) 0.3 0.4 Absolute Granulocytes (1.4 - 6.5 /CUMM) 7.9 H 9.8 H Absolute Lymphocytes (1.2 - 3.4 /CUMM) 2.3 2.8 Absolute Monocytes (0.10 - 0.60 /CUMM) 0.4 0.5 Absolute Eosinophils (0.0 - 0.7 /CUMM) 0.2 0.2 Absolute Basophils (0.0 - 0.2 /CUMM) 0 0.1 PUBS MCHC (33.0 - 37.0 G/DL) 32.7 L 32.8 L 02/26 02/26 1748 1545 Chemistry Sodium (137 - 145 mmol/L) 139 Potassium (3.5 - 5.1 mmol/L) 4.6 Chloride (98 - 107 mmol/L) 100 Carbon Dioxide (22 - 30 mmol/L) 28 Anion Gap (5 - 16) 11 BUN (7 - 17 mg/dL) 9 Creatinine (0.5 - 1.0 mg/dL) 0.6 Estimated GFR (>60 ml/min) > 60 BUN/Creatinine Ratio (7 - 25 %) 15.0 Glucose (65 - 99 mg/dL) 92 Lactic Acid (0.7 - 2.1 mmol/L) Cancelled 1.4 Calcium (8.4 - 10.2 mg/dL) 9.1 Total Bilirubin (0.2 - 1.3 mg/dL) 0.3 AST (14 - 36 U/L) 21 ALT (9 - 52 U/L) 26 Alkaline Phosphatase (<127 U/L) 121 Total Protein (6.3 - 8.2 g/dL) 6.6 Albumin (3.5 - 5.0 g/dL) 3.7 Globulin (1.9 - 4.2 gm/dL) 2.9 Albumin/Globulin Ratio (1.1 - 2.2 %) 1.3 Total Beta HCG (NEGATIVE) NEGATIVE Hematology CBC w Diff NO MAN DIFF REQ WBC (4.8 - 10.8 /CUMM) 17.0 H RBC (4.20 - 5.40 /CUMM) 3.86 L Hgb (12.0 - 16.0 G/DL) 12.3 Hct (37 - 47 %) 37.8 MCV (81.0 - 99.0 FL) 98.1 MCH (27.0 - 31.0 PG) 31.9 H RDW (11.5 - 14.5 %) 15.6 H Plt Count (130 - 400 /CUMM) 540 H MPV (7.4 - 10.4 FL) 6.9 L Gran % (42.2 - 75.2 %) 72.9 Lymphocytes % (20.5 - 51.1 %) 22.4 Monocytes % (1.7 - 9.3 %) 2.5 Eosinophils % (0 - 5 %) 1.1 Basophils % (0.0 - 2.0 %) 1.1 Absolute Granulocytes (1.4 - 6.5 /CUMM) 12.4 H Absolute Lymphocytes (1.2 - 3.4 /CUMM) 3.8 H Absolute Monocytes (0.10 - 0.60 /CUMM) 0.4 Absolute Eosinophils (0.0 - 0.7 /CUMM) 0.2 Absolute Basophils (0.0 - 0.2 /CUMM) 0.2 PUBS MCHC (33.0 - 37.0 G/DL) 32.5 L Urines Urine Color (YEL,AMB,STR) YEL Urine Clarity (CLEAR) CLEAR Urine pH (5.0 - 8.0) 6.0 Ur Specific [place] (1.001 - 1.035) >= 1.030 Urine Protein (NEG,<30 MG/DL) TRACE H Urine Ketones (NEG) NEG Urine Nitrite (NEG) NEG Urine Bilirubin (NEG) NEG Urine Urobilinogen (0.1 - 1.0 EU/dl) 2.0 H Ur Leukocyte Esterase (NEG) NEG Ur Microscopic SEDIMENT EXAMINED Urine WBC (0 - 2 /HPF) 25-50 H Ur Epithelial Cells (NONE,FEW) FEW Urine Bacteria (NEG/NONE) MOD H Urine Mucus (FEW,NONE) MANY H Urine Hemoglobin (NEG) NEG Urine Glucose (N MG/DL) NEG Assessment/Plan Assessment/Plan Impression is pelvic inflammatory process unclear origin treating empirically with IV antibiotics this could be diverticulitis most of her pain was in the left lower quadrant she may develop a pericolic abscess as yet she hasn't we will see once she has a bowel movement if it goes without pain and we will advance her diet, if an abscess does develop we will arrange percutaneous drainage, overall she stable no peritoneal signs. Problem List: 1. Abdominal pain 2. Free fluid in pelvis 3. Leukocytosis Core Measures/Miscellaneous Venous Thromboembolism VTE Risk Factors: Age > 40, Inflammatory bowel Dx VTE Contraindications: No Contraindications VTE Diagnosis: No VTE Type: NONE VTE Confirmed by (Test): NONE Beta Vy Is Beta Vy a Home Med? No Antibiotics Is Patient on Antibiotics? Yes If Yes: infection
[2017-02-28 15:00] VITALS: BP 126/80
[2017-02-28 22:32] VITALS: BP 106/70
[2017-03-01 06:49] VITALS: BP 110/64
--- NOTE | 2017-03-01 07:23 | PN- Student ---
PASTORA ALVARADO 03/01/17 0714: Subjective Subjective: Patient seen this am comfortable with no complaints. Pain is adequately controlled. Denies chest pain/SOB; n/v; headaches; dizziness. Tolerating clears diet. Has had 3 small bowel movements since yesterday. Objective Objective: Vital Signs Result Date Time Pulse Ox 95 03/01 649 B/P 110/64 03/01 0649 O2 Delivery Room Air 03/01 649 Temp 98.7 03/01 649 Pulse 73 03/01 0649 Resp 20 03/01 649 O2 Flow Rate Room Air 02/26 2045 Intake & Output 03/01 0000 02/28 1600 02/28 0800 Intake Total 302 088 5570 Output Total 400 Balance 330 850 600 Intake, IV 445 992 4626 Intake, Oral 200 50 Number 0 Bowel Movements Output, Urine 400 Patient 249 lb Weight General: awake alert oriented; NAD Lungs: CTAB; no wheeze/rales/rhonchi Heart: S1 S2; RRR; no M; R; G Abdomen: soft; non-distended; normoactive bowel sounds; non-tender Extremities: warm; gross motor/sensory function in tact; no peripheral edema; no calf tenderness bilaterally Assessment/Plan Assessment: This is a 46 y/o woman admission day 3 s/p intraabdominal infection and fluid collection for suspected microperforation of the bowel. Infection is resolving and clears diet is being tolerated well with no n/v and +flatus with +bm Plan: Diet: consider advance to full liquid as tolerated Pain: continue current pain regimen Abx: continue for intra abdominal infection DVT and GI ppx Consider D/C to home Will discuss with attending JIMMY LEWIS PA-C 03/01/17 0829: Objective Results Results: Laboratory Tests 03/01/17 0620: CBC w Diff Pending, WBC Pending, RBC Pending, Hgb Pending, Hct Pending, MCV Pending, MCH Pending, RDW Pending, Plt Count Pending, MPV Pending, PUBS MCHC Pending 02/28/17 0710: Anion Gap 9, Estimated GFR > 60, BUN/Creatinine Ratio 8.0, CBC w Diff NO MAN DIFF REQ, RBC 3.58 L, MCV 97.2, MCH 31.8 H, RDW 15.6 H, MPV 6.9 L, Gran % 72.6, Lymphocytes % 21.6, Monocytes % 4.1, Eosinophils % 1.4, Basophils % 0.3, Absolute Granulocytes 7.9 H, Absolute Lymphocytes 2.3, Absolute Monocytes 0.4, Absolute Eosinophils 0.2, Absolute Basophils 0, PUBS MCHC 32.7 L 02/27/17 0715: Anion Gap 7, Estimated GFR > 60, BUN/Creatinine Ratio 10.0, CBC w Diff NO MAN DIFF REQ, RBC 3.65 L, MCV 97.3, MCH 31.9 H, RDW 15.4 H, MPV 6.9 L, Gran % 73.6, Lymphocytes % 21.0, Monocytes % 3.7, Eosinophils % 1.3, Basophils % 0.4, Absolute Granulocytes 9.8 H, Absolute Lymphocytes 2.8, Absolute Monocytes 0.5, Absolute Eosinophils 0.2, Absolute Basophils 0.1, PUBS MCHC 32.8 L 02/26/17 1748: Lactic Acid Cancelled 02/26/17 1545: Anion Gap 11, Estimated GFR > 60, BUN/Creatinine Ratio 15.0, Glucose 92, Lactic Acid 1.4, Calcium 9.1, Total Bilirubin 0.3, AST 21, ALT 26, Alkaline Phosphatase 121, Total Protein 6.6, Albumin 3.7, Globulin 2.9, Albumin/Globulin Ratio 1.3, Total Beta HCG NEGATIVE, CBC w Diff NO MAN DIFF REQ, RBC 3.86 L, MCV 98.1, MCH 31.9 H, RDW 15.6 H, MPV 6.9 L, Gran % 72.9, Lymphocytes % 22.4, Monocytes % 2.5, Eosinophils % 1.1, Basophils % 1.1, Absolute Granulocytes 12.4 H, Absolute Lymphocytes 3.8 H, Absolute Monocytes 0.4, Absolute Eosinophils 0.2, Absolute Basophils 0.2, PUBS MCHC 32.5 L, Urine Color YEL, Urine Clarity CLEAR, Urine pH 6.0, Ur Specific [place] >= 1.030, Urine Protein TRACE H, Urine Ketones NEG, Urine Nitrite NEG, Urine Bilirubin NEG, Urine Urobilinogen 2.0 H, Ur Leukocyte Esterase NEG, Ur Microscopic SEDIMENT EXAMINED, Urine WBC 25-50 H, Ur Epithelial Cells FEW, Urine Bacteria MOD H, Urine Mucus MANY H, Urine Hemoglobin NEG, Urine Glucose NEG Microbiology 02/26 1553 BLOOD: Blood Culture - RES 02/26 1545 BLOOD: Blood Culture - RES 02/26 1540 URINE ROUT: Urine Culture - COMP ANTHONY BAILEY 03/01/17 0922: Assessment/Plan Assessment: PMH is significant for asthma, gerd, and morbid obesity (is s/p bariatric surgery)
[2017-03-01 08:23] LABS: ABSOLUTE BASOPHIL COUNT 0 /CUMM (0.0-0.2); ABSOLUTE EOSINOPHIL COUNT 0.2 /CUMM (0.0-0.7); ABSOLUTE GRANULOCYTE CT 4.6 /CUMM (1.4-6.5); ABSOLUTE LYMPH COUNT 2.8 /CUMM (1.2-3.4); ABSOLUTE MONOCYTE COUNT 0.4 /CUMM (0.10-0.60); BASOPHIL % 0.6 % (0.0-2.0); EOSINOPHIL % 2.2 % (0-5); GRANULOCYTE % 57.7 % (42.2-75.2); HEMATOCRIT 35.4 % (37-47); MEAN CORPUSCULAR HGB CONC 32.9 G/DL (33.0-37.0); MEAN CORPUSCULAR VOLUME 97.1 FL (81.0-99.0); PLATELET COUNT 504 /CUMM (130-400); RBC DISTRIBUTION WIDTH 15.5 % (11.5-14.5); RED BLOOD CELL CT 3.64 /CUMM (4.20-5.40)
[2017-03-01] MEDS ORDERED: AUGMENTIN 875-1 EACH PO (09:59)
[2017-03-01] MEDS ORDERED: COLACE100 M1 PO (09:59)
--- NOTE | 2017-03-01 10:02 | Patient Discharge Instructions ---
Discharge Instructions General Discharge Information You were seen/treated for: Abdominal pain related to fluid collection You had these procedures: Conservative management with IV antibiotics Watch for these problems: Increasing pain, fever, nausea, vomitting Special Instructions: Do not strain when having bowel movement Diet Continue normal diet: Yes Recommended Diet: Low Residue Activity Full Activity/No Limits: No Activity Self Limited: Yes Acute Coronary Syndrome Inclusion Criteria At DC or during hospital stay patient has or had the following: ACS DIAGNOSIS No Discharge Core Measures Meds if any: Prescribed or Continued at Discharge Meds if any: NOT Prescribed or Continued at Discharge Congestive Heart Failure Inclusion Criteria At DC or during hospital stay patient has or had the following: CHF DIAGNOSIS No Discharge Core Measures Meds if any: Prescribed or Continued at Discharge Meds if any: NOT Prescribed or Continued at Discharge Cerebrovascular accident Inclusion Criteria At DC or during hospital stay patient has or had the following: CVA/TIA Diagnosis No Discharge Core Measures Meds if any: Prescribed or Continued at Discharge Meds if any: NOT Prescribed or Continued at Discharge Venous thromboembolism Inclusion Criteria VTE Diagnosis No VTE Type NONE VTE Confirmed by (Test) NONE Discharge Core Measures - Per Current guidelines, there needs to be overlap - treatment for the first 5 days of Warfarin therapy. - If discharged on Warfarin prior to 5 days of - overlap therapy, the patient will need to be - assessed for post discharge needs including - *Post discharge parental anticoagulation - *Warfarin and/or parental anticoagulation education - *Follow up date to check INR post discharge At least 5 days overlap therapy as Inpatient No Meds if any: Prescribed or Continued at Discharge Note: Overlap Therapy is Warfarin and Anticoagulant Meds if any: NOT Prescribed or Continued at Discharge
== END 2017-03-01 13:10 | DRG 531 ==
LOC: ERH 14:22 → 2NA 19:38 → ERHI 19:38 → ENRESERV 20:04 → ENTRNSPT 20:44 → 2NA 22:14 → CMPTRNSPT 02-27 09:18 → ENPENDDIS 03-01 10:00 → 2NA 03-01 13:10
PROVIDERS: Physician Assistant; Physician Assistant Medical; Physician Assistant Surgical; ADMIT Surgery
DX: N73.5 Female pelvic peritonitis, unspecified (principal); J44.9 Chronic obstructive pulmonary disease, unspecified; F17.200 Nicotine dependence, unspecified, uncomplicated; E66.01 Morbid (severe) obesity due to excess calories; Z68.42 Body mass index [BMI] 45.0-49.9, adult; K59.00 Constipation, unspecified; Z86.010 Personal history of colon polyps; Z98.84 Bariatric surgery status; G43.909 Migraine, unspecified, not intractable, without status migrainosus; K44.9 Diaphragmatic hernia without obstruction or gangrene; M54.9 Dorsalgia, unspecified; G89.29 Other chronic pain; F41.9 Anxiety disorder, unspecified; F32.9 Major depressive disorder, single episode, unspecified; F15.93 Other stimulant use, unspecified with withdrawal
CPT/HCPCS: 2NAP; 36415; 74177; 81001; 82436; 87040; 87086; 96374; 96375; J0131; J1200; J1644; J2405; J3490; J7042

== ENCOUNTER 2017-12-26 09:07 | Emergency (ER) | payer OTHER ==
[~2017-12-26] VITALS: Ht 157.5 cm; Wt 115.7 kg
[~2017-12-26 09:07] MED LIST changes: +AUGMENTIN 875-1 EACH PO; +CALCIUM 500 +1 EAC5 PO; +CIPROFLOXACIN500 M2 PO; +COLACE100 M1 PO; +CYMBALTA60 M1 PO; +DAILY VALUE1 EACH PO; +LEVSIN-SL0.125 MG SL; +NASCOBAL1 EACH NAS; +ONDANSETRON HCL8 MG PO; +PANTOPRAZOLE SO40 M1 PO; +PROAIR HFA8.5 GM INH; +ULTRAM50 M1 PO; +ZOFRAN ODT4 M1 SL
[2017-12-26 09:18] VITALS: BP 122/87
[2017-12-26] MEDS ORDERED: TOPIRAMATE25 M2 PO (09:50)
[2017-12-26] MEDS ORDERED: LAMICTAL200 M1 PO (09:50)
[2017-12-26] MEDS ORDERED: VICODIN 5-3001 EACH PO (09:51)
[2017-12-26] MEDS ORDERED: GABAPENTIN300 M2 PO (09:51)
[2017-12-26] MEDS ORDERED: VITAMIN D5000 UNIT PO (09:52)
[2017-12-26] MEDS ORDERED: PENICILLIN V P500 M1 PO (10:06)
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
== END 2017-12-26 10:08 ==
LOC: ERH 09:07
DX: K05.10 Chronic gingivitis, plaque induced (principal); K04.7 Periapical abscess without sinus

== ENCOUNTER 2018-03-20 17:17 | Inpatient (IN) | payer OTHER ==
[~2018-03-20] VITALS: Ht 157.5 cm; Wt 117.0 kg
[~2018-03-20 17:17] MED LIST changes: +GABAPENTIN300 M2 PO; +HYDROXYZINE HCL25 M2 PO; +LAMICTAL200 M1 PO; +PENICILLIN V P500 M1 PO; +TOPIRAMATE25 M2 PO; +VICODIN 5-3001 EACH PO; +VITAMIN D5000 UNIT PO
[2018-03-20 18:15] LABS: ABSOLUTE BASOPHIL COUNT 0.1 /CUMM (0.0-0.2); ABSOLUTE EOSINOPHIL COUNT 0.2 /CUMM (0.0-0.7); ABSOLUTE GRANULOCYTE CT 4.4 /CUMM (1.4-6.5); ABSOLUTE LYMPH COUNT 6.3 /CUMM (1.2-3.4); ABSOLUTE MONOCYTE COUNT 0.5 /CUMM (0.10-0.60); BASOPHIL % 0.5 % (0.0-2.0); EOSINOPHIL % 1.5 % (0-5); GRANULOCYTE % 38.5 % (42.2-75.2); HEMATOCRIT 47.6 % (37-47); MEAN CORPUSCULAR HGB CONC 33.3 G/DL (33.0-37.0); MEAN PLATELET VOLUME 7.6 FL (7.4-10.4); PLATELET COUNT 328 /CUMM (130-400); RBC DISTRIBUTION WIDTH 15.9 % (11.5-14.5); RED BLOOD CELL CT 4.97 /CUMM (4.20-5.40); WHITE BLOOD CELL COUNT 11.4 /CUMM (4.8-10.8)
[2018-03-20] MEDS ORDERED: NASCOBAL1 EACH NAS (18:20)
[2018-03-20] MEDS ORDERED: CYMBALTA30 M1 PO (18:21)
[2018-03-20] MEDS ORDERED: HYDROXYZINE HCL25 M3 PO (18:21)
[2018-03-20] MEDS ORDERED: DULOXETINE HCL60 MG PO (18:21)
[2018-03-20] MEDS ORDERED: TOPAMAX50 M1 PO (18:21)
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
[2018-03-20 22:47] VITALS: BP 136/81
[2018-03-20 22:50] VITALS: BP 136/81
[2018-03-20] MEDS ORDERED: VICODIN 5-3001 EACH PO (23:51)
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
[2018-03-21 05:07] VITALS: BP 102/60
[2018-03-21 08:00] VITALS: BP 126/79
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
[2018-03-21 11:58] VITALS: BP 121/76
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
[2018-03-21 16:32] VITALS: BP 120/75
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
[2018-03-21 19:49] VITALS: BP 125/80
[2018-03-21 20:02] VITALS: BP 125/80
[2018-03-22 08:07] VITALS: BP 137/96
[2018-03-22 08:28] VITALS: BP 137/96
[2018-03-22 12:39] VITALS: BP 132/91
[2018-03-22] MEDS ORDERED: HYDROXYZINE HCL50 M1 PO (14:10)
[2018-03-22] MEDS ORDERED: DISULFIRAM250 M1 PO (14:10)
[2018-03-22] MEDS ORDERED: NICOTINE PATCH1 EAC2 TOP (14:10)
--- NOTE | 2018-03-22 14:16 | Patient Discharge Instructions ---
Psych Discharge Inst General Discharge Information Reason for Admission: SI, increased depression, anxiety and alcohol use in the context of losing home on 03/26/18. Psy Discharge Primary Diag+ Bipolar II disorder Psy Discharge Secondary Diag+ Generalized anxiety d/o PTSD by hx Alcohol use d/o Cannabis use d/o Hx gastric bypass Overweight Arthritis Summary Tests/Major Procedures Lab ALT 18 U/L 03/20/18 1747 AST 19 U/L 03/20/18 1747 Anion Gap 18 H 03/20/18 1747 BUN 11 mg/dL 03/20/18 1747 Calcium 10.5 mg/dL H 03/20/18 1747 Carbon Dioxide 24 mmol/L 03/20/18 1747 Chloride 106 mmol/L 03/20/18 1747 Cholesterol 238 MG/DL H 03/20/18 1747 Cholesterol/HDL Ratio 4 % 03/20/18 1747 Creatinine 0.7 mg/dL 03/20/18 1747 Estimated GFR > 60 ml/min 03/20/18 1747 Glucose 92 mg/dL 03/20/18 1747 HDL Cholesterol 63 mg/dL H 03/20/18 1747 Hemoglobin A1c 5.5 % 03/20/18 1747 LDL Cholesterol, Calc 121 mg/dL 03/20/18 1747 Potassium 4.7 mmol/L 03/20/18 1747 Sodium 148 mmol/L H 03/20/18 1747 TSH &T3 &Free T4 Intrp 1.360 uIU/mL 03/20/18 1747 Total Protein 8.7 g/dL H 03/20/18 1747 Triglycerides 273 mg/dL H 03/20/18 1747 Absolute Lymphocytes 6.3 /CUMM H 03/20/18 1747 Gran % 38.5 % L 03/20/18 1747 Hct 47.6 % H 03/20/18 1747 Hgb 15.9 G/DL 03/20/18 1747 Lymphocytes 59 % H 03/20/18 1747 Lymphocytes % 55.5 % H 03/20/18 1747 MCH 32.0 PG H 03/20/18 1747 RDW 15.9 % H 03/20/18 1747 Segmented Neutrophils 35 % L 03/20/18 1747 WBC 11.4 /CUMM H 03/20/18 1747 Serum Alcohol 142.0 MG/DL 03/20/18 1747 Urine Cannabis Screen > 80.00 NG/ML H 03/20/181803 Urine Test NEGATIVE 03/20/181803 EKG 03/21/18 showed sinus rhythm @ 62, borderline left axis deviation, no significant change since previous tracing. Otherwise normal EKG, QT 448, QTc 455. Studies Pending at DC: None. Patient Instructions Contact Information Your Psychiatrist on [facility] was Quinton DODGE,Ilir * If you are experiencing an emergency related to this hospitalization, please call [phone] to contact the treating psychiatrist or the psychiatrist-on- call. * To Request a copy of your medical records, please contact the Medical Records Department at [phone]. * To request results of studies pending at the time of discharge, please call [phone]. * Continue your Medications until directed to stop by your Healthcare provider. General Medication Information Please continue to take your new medications and your continued home medications , unless otherwise indicated on your discharge medication list, or unless directed by your MD or TRAUMA THERAPIST to stop them. Special Instructions Diet Regular Activity Normal Other Inst/Recommendations Stay clean and sober! Please see PCP about abnormal labs listed above. - Tobacco Use Treatment Offered Post DC Medications Offered: Script Given-See Med List Post DC Tobacco Treatment Plan: [facility] Tobacco [facility]x [facility] Program Appt Date: 04/03/18 Program Appt Time: 1600 - EtOH/Drug Use D/O Treatment Offered Post DC Medications Offered: Script Given-See Med List (Antabuse) Post DC EtOH/SubAbuse TX Plan: [facility] SubAbuse/Dual IOP Program Appt Date: 03/26/18 Program Appt Time: 1000 Metabolic Screening ([x]) Not Applicable, patient not on a neuroleptic. OR () Patient on a neuroleptic(s) . Enter below results for Hemoglobin A1C, and lipid panel if obtained during the last 365 days. BMI: 47.200 Blood Pressure: 132/91 Laboratory Results From [facility] EHR (If applicable): Advance Directives Does the Patient have Medical Advance Directives No/Refused further info Does Pt have Psychiatric Advance Directives? No/Refused further info Does Patient have a Designated Surrogate Decision Maker: No Information About Psychiatric Advance Directives Provided? Refused Discharge Plan Post Hospital Treatment Plan: Returning to home and family.
--- NOTE | 2018-03-22 14:25 | CP SOUTH PROGRESS NOTE PSYCH ---
Psych (Inpt) Progress Note Progress Note Include the following elements, when applicable: Involvement in the active treatment of the patient with behavioral observations of the patient and the patient's response to the treatment. Review of the ongoing treatment process in the context of the treatment plan. Indication of how multi-disciplinary staff members are carrying out the treatment plan. Plans for future interventions and recommendations for revision of the treatment plan. Liaison with other physicians/providers. Progress Note: Case and treatment plan discussed in team meeting. Staff reports that the patient is denying suicidal ideation. She was isolative last night. She was in bed most of the evening. Family meeting is scheduled for today at 2:30 PM. Patient seen at 11:35 AM with PA student. Affect is calm and blunted. Feels good but reports she did not sleep well. Had middle of the night awakenings and tossed and turned. Of note, patient reported she took a 1 hour nap yesterday. Patient was advised today to avoid daytime napping. Reports she had nightmares last night and was running from something all night long. Anticipates family meeting at 2:30 PM with ex- and son. Feeling anxious as it gets closer in time to when she will have to vacate the house and she wants to work on her housing situation. Mood is good. Rates sad mood like 3/10. Reports groups are helping. Rates anxiety probably like a 7/10. Denies feeling hopeless. Feels helpless about housing but not generally. Feels worthless, reporting that she always feels that. States she has self-esteem issues. Feels guilty. Denies active and passive suicidal ideation. Denies homicidal ideation. Denies auditory and visual hallucinations and paranoid ideation. Reports appetite is okay, stating that she is eating. Reports energy is okay. Tolerating medications well. Feels ready and safe for discharge. IMPRESSION: Condition improved. We are [facility]. She will need to come off of Vicodin to attend our dual diagnosis IOP. Await outcome of family meeting today. Plan is for discharge today to home and family.
--- NOTE | 2018-03-22 15:16 | DISCHARGE SUMMARY REPORT-PSYCH ---
Visit Information Visit Dates/Diagnosis' Admission Date: 03/20/18 Discharge Date: 03/22/18 Reason for Admission: SI, increased depression, anxiety and alcohol use in the context of losing home on 03/26/18. Psy Discharge Primary Diag: Bipolar II disorder Psy Discharge Secondary Diag: Generalized anxiety d/o PTSD by hx Alcohol use d/o Cannabis use d/o Hx gastric bypass Overweight Arthritis Hospital Course Significant Lab Findings: Lab ALT 18 U/L 03/20/18 1747 AST 19 U/L 03/20/18 1747 Anion Gap 18 H 03/20/18 1747 BUN 11 mg/dL 03/20/18 1747 Calcium 10.5 mg/dL H 03/20/18 1747 Carbon Dioxide 24 mmol/L 03/20/18 1747 Chloride 106 mmol/L 03/20/18 1747 Cholesterol 238 MG/DL H 03/20/18 1747 Cholesterol/HDL Ratio 4 % 03/20/18 1747 Creatinine 0.7 mg/dL 03/20/18 1747 Estimated GFR > 60 ml/min 03/20/18 1747 Glucose 92 mg/dL 03/20/18 1747 HDL Cholesterol 63 mg/dL H 03/20/18 1747 Hemoglobin A1c 5.5 % 03/20/18 1747 LDL Cholesterol, Calc 121 mg/dL 03/20/18 1747 Potassium 4.7 mmol/L 03/20/18 1747 Sodium 148 mmol/L H 03/20/18 1747 TSH &T3 &Free T4 Intrp 1.360 uIU/mL 03/20/18 1747 Total Protein 8.7 g/dL H 03/20/18 1747 Triglycerides 273 mg/dL H 03/20/18 1747 Absolute Lymphocytes 6.3 /CUMM H 03/20/18 1747 Gran % 38.5 % L 03/20/18 1747 Hct 47.6 % H 03/20/18 1747 Hgb 15.9 G/DL 03/20/18 1747 Lymphocytes 59 % H 03/20/18 1747 Lymphocytes % 55.5 % H 03/20/18 1747 MCH 32.0 PG H 03/20/18 1747 RDW 15.9 % H 03/20/18 1747 Segmented Neutrophils 35 % L 03/20/18 1747 WBC 11.4 /CUMM H 03/20/18 1747 Serum Alcohol 142.0 MG/DL 03/20/181746 Urine Cannabis Screen > 80.00 NG/ML H 03/20/181803 Urine Test NEGATIVE 03/20/181803 EKG 03/21/18 showed sinus rhythm @ 62, borderline left axis deviation, no significant change since previous tracing. Otherwise normal EKG, QT 448, QTc 455. Course Complications: None. Consultations: The patient was seen by Dr. Snow for admission H&P. Please refer to his note for additional information. Allergies: Coded Allergies: nitrofurantoin (From MACROBID) (HIVES/SOB 03/20/18) aspirin (Intermediate, VOMITING 03/20/18) Hospital Course/TX Response: The patient was monitored on the unit for safety, alcohol withdrawal and mood disorder. She participated in multi-modal treatments on the unit. Detox was uneventful. Home medications were continued. Prn hydroxyzine dose was increased. Major risks/benefits of Antabuse were discussed with patient. She was advised to avoid alcohol-containing products while on it. She was advised of the risk of illness/ if she were to drink while on Antabuse. She was advised of the risk of liver irritation. She was advised to avoid while on it. Vicodin will be stopped, since this is required to attend Dual IOP. The patient had a successful family meeting with son and ex- on date of discharge. Patient's and family's questions were addressed. Suicidal ideation was short-lived. Patient felt that alcohol had contributed to SI. Progress note from date of discharge, 03/22/18: "Case and treatment plan discussed in team meeting. Staff reports that the patient is denying suicidal ideation. She was isolative last night. She was in bed most of the evening. Family meeting is scheduled for today at 2:30 PM. Patient seen at 11:35 AM with PA student. Affect is calm and blunted. Feels good but reports she did not sleep well. Had middle of the night awakenings and tossed and turned. Of note, patient reported she took a 1 hour nap yesterday. Patient was advised today to avoid daytime napping. Reports she had nightmares last night and was running from something all night long. Anticipates family meeting at 2:30 PM with ex- and son. Feeling anxious as it gets closer in time to when she will have to vacate the house and she wants to work on her housing situation. Mood is good. Rates sad mood like 3/10. Reports groups are helping. Rates anxiety probably like a 7/10. Denies feeling hopeless. Feels helpless about housing but not generally. Feels worthless, reporting that she always feels that. States she has self-esteem issues. Feels guilty. Denies active and passive suicidal ideation. Denies homicidal ideation. Denies auditory and visual hallucinations and paranoid ideation. Reports appetite is okay, stating that she is eating. Reports energy is okay. Tolerating medications well. Feels ready and safe for discharge. IMPRESSION: Condition improved. We are referring patient toIOP. She will need to come off of Vicodin to attend our dual diagnosis IOP. Await outcome of family meeting today. Plan is for discharge today to home and family." Discharge HBIPS - Tobacco Use Treatment Offered Post DC Medications Offered: Script Given-See Med List Post DC Tobacco Treatment Plan: [facility] Program Appt Date: 04/03/18 Program Appt Time: 1600 - EtOH/Drug Use D/O Treatment Offered Post DC Medications Offered: Script Given-See Med List (Antabuse) Post DC EtOH/SubAbuse TX Plan: [facility] SubAbuse/Dual IOP Program Appt Date: 03/25/18 Program Appt Time: 1130 Metabolic Screening - Screen if on a Neuroleptic Medication - Metabolic screening should include: - Blood Pressure, BMI, Glucose or Hgb A1c, & a - Lipid profile from within the past 365 days. Metabolic Screening ([x]) Not Applicable, patient not on a neuroleptic. OR () Patient on a neuroleptic(s) . Enter below results for Hemoglobin A1C, and lipid panel if obtained during the last 365 days. BMI: 47.200 Blood Pressure: 132/91 Laboratory Results From [facility] E[facility] (If applicable): Discharge Instructions General Discharge Information Multiple Neuroleptics: ([x]) Not Applicable OR Document below three failed attempts at monotherapy, or a plan to taper to monotherapy, or augmentation of Clozapine. () Discharge Diet Regular Discharge Activity Normal DC Disposition: Returning to home and family. Referrals Ordered Referrals Intensive Outpt Psy-Substance 03/25/[id number] [facility] [address] [place], [place] [phone] Intake appointment: 03/25/18, at 11:30am Outpatient Psych - Substance 04/03/18 [id number] [place] [address] [address] [facility] [address], [place] [phone] Groups meet every other Sunday at 4pm Next group: 04/03/18, at 4pm Prescriptions Stop taking the following medications: Hydroxyzine HCl (hydrOXYzine HCl) 25 MG TABLET ORAL THREE TIMES DAILY as needed for ANXIETY Qty = 90 Hydrocodone/Acetaminophen (Vicodin 5-300 MG Tablet) 5 MG-300 MG TABLET ORAL EVERY 8 HOURS NEEDED as needed for PAIN Continue taking these medications: Pantoprazole Sodium (Pantoprazole Sodium) 40 MG TABLET. 1 Tablet ORAL DAILY as needed for GI Qty = 90 Comments: Last Taken:GIVEN IV IN HOSPITAL 03/01/17 Time:09:20 AM Lamotrigine (Lamictal) 200 MG TABLET 1 Tablet ORAL DAILY Qty = 30 Gabapentin (Gabapentin) 300 MG CAPSULE 1 Capsule ORAL TAKE AT BEDTIME as needed for UNKNOWN Qty = 120 Cholecalciferol (Vitamin D3) (Vitamin D) 5,000 UNIT TABLET 1 Tablet ORAL DAILY Cyanocobalamin (Vitamin B-12) (Nascobal) 500 MCG/SPRAY SPRAY 1 [place] In the nose ONCE A WEEK Qty = 4 Topiramate (Topamax) 50 MG TABLET 1 Tablet ORAL TWICE DAILY Qty = 60 Duloxetine Hydrochloride (Cymbalta) 30 MG CAPSULE. 1 Capsule ORAL DAILY Qty = 30 Duloxetine HCl (Duloxetine HCl) 60 MG CAPSULE. 1 Capsule ORAL DAILY Qty = 30 Start taking the following new medications: Nicotine (Nicotine Patch) 14 MG/24 HOUR PATCH.TD24 1 Patch On the skin DAILY Qty = 14 No Refills Hydroxyzine Hydrochloride (Atarax) 50 MG TAB 1 Tablet ORAL EVERY SIX HOURS NEEDED as needed for ANXIETY/AGITATION/ INSOMNIA Qty = 42 No Refills Disulfiram (Disulfiram) 250 MG TABLET 1 Tablet ORAL SEE INSTRUCTIONS Qty = 20 No Refills Instructions: Take 2 po daily x 6 days then 1 po daily and continue Other Inst/Recommendations Stay clean and sober! Please see PCP about abnormal labs listed above. Studies Pending at Discharge None. Copies To: Intensive Outpt Psy-Substance
--- NOTE | 2018-03-22 16:49 | SOCIAL WORKER PROG NOTE PSYCH ---
See Addendum Social Work Progress Note Progress Note This typewriter aligner met with the patient. She expressed eagerness to discharge today in order to address matters related to the eviction and where she, her son and ex- will stay from 03/26/18 on. She denied SI/HI/hallucinations. Patient stated that she plans to call [address] on Sunday (48 hours before eviction) regarding housing. She stated that she is not willing to consider options that would cause the three individuals to split up. She added that they have funds to allow them to stay in a hotel for "a few days". She identified a safety plan in which she would "call crisis, my son or 911." 2:35pm Dr. Alcantara, Margaux Ramírez (PA student) and this typewriter aligner met with the patient, her son and her ex- for a family meeting. Housing was discussed and her ex confirmed that they will be able to stay in a hotel temporarily following the eviction. The patient and her ex- also stated that he has submitted forms to "families in crisis" through [employer], a program that may be able to provide assistance. Dr. Alcantara addressed medication questions and concerns prior to leaving the meeting. Patient's son and ex- did not have any safety concerns for the patient and were agreeable to discharge today. We discussed discharge plans. Patient is agreeable to discontinuing the Vicodin (which was discussed with Dr. Alcantara) and is able to attend IOP. She was unwilling to go to any other IOP. Patient also stated that she will attend AA meetings and will obtain a meeting book from nursing prior to discharging today. She is interested in obtaining a sponsor. Patient, her son and ex- denied any access to guns or weapons. Patient denied SI/HI/hallucinations. They were informed of the crisis numbers and warm lines which the patient accepted upon discharge. This typewriter aligner spoke with Estefania Reyes at [facility] for the referral. Patient accepted an IOP intake date of 03/25/18 at 11:30am. Estefania stated that the would assist the patient in exploring resources for case management. As discussed with Dr. Alcantara and the patient, a message was left for OPS requesting that the OPS appointment on 03/27/18 is cancelled due to the patient beginning IOP. Faxed Referral(s) Referred To: [facility] Transition of Care Documents sent: Health Summary Faxed to: [facility] Fax #: [phone] Faxed by: Jose Winston LCSW Date faxed: 03/22/18 Time Faxed: [phone] Comment: 3 attempts to fax - 3rd attempt successful in entirety
== END 2018-03-22 16:22 | DRG 753 ==
LOC: ERH 17:17 → CP SOUTH 21:30 → ERHI 21:30 → CP SOUTH 22:34
PROVIDERS: Physician Assistant Medical
DX: F31.81 Bipolar II disorder (principal); F41.9 Anxiety disorder, unspecified; F43.12 Post-traumatic stress disorder, chronic; F12.90 Cannabis use, unspecified, uncomplicated; F10.10 Alcohol abuse, uncomplicated; Z98.84 Bariatric surgery status; E66.3 Overweight
CPT/HCPCS: 80307; 81003; 81025; 93005; 93010; G0480; J3490